=== PATIENT | female | born 1965 | race Caucasian/White ===

== ENCOUNTER 2021-10-09 08:32 | Emergency (ER) | payer BC ==
[2021-10-09] MEDS ORDERED: Sodium Chloride 0.9% 10 ML Syringe FLUSH PRN (08:33)
--- NOTE | 2021-10-09 08:34 | EDM.PDOC ---
ED HPI GENERAL MEDICAL PROBLEM - General Chief Complaint: Gastrointestinal Problem Stated Complaint: ABDOMINAL PAIN Time Seen by Provider: 10/09/21 08:34 Source of Information: Reports: Patient History Limitations: Reports: No Limitations - History of Present Illness INITIAL COMMENTS - FREE TEXT/NARRATIVE: 56 YO WF PRESENTS TO ER COMPLAINING OF ABDOMINAL PAIN WHICH BEGAN THIS AM AFTER BOWEL MOVEMENT. PT REPORTS SHE HAD JUST FINISHED MOVING HER BOWELS WHEN SHE DEVELOPED SUDDEN ONSET SEVERE LOWER ABDOMINAL PAIN RADIATING TO HER BACK. PT REPORTS PAIN WAXES/WANES AND IS MUCH IMPROVED UPON INITIAL EVALUATION. PT REPORTS BOWEL MOVEMENTS HAVE BEEN NORMAL WITHOUT ANY SIGNS OF RECTAL BLEEDING OR CHANGE IS CHARACTER OF STOOL. PT REPORTS ASSOCIATED NAUSEA WITHOUT VOMITING. PT WITH PMH OF PEUTZ-JEGHERS SYNDROME AND COLON CANCER HISTORY 6 YEARS AGO. PT HAD A COLONOSCOPY IN THE RECENT PAST WITH FEW POLYPS AT THAT TIME. PT DENIES FEVER/CHILLS OR RECENT ILLNESSES RECENTLY. Onset: Today, Sudden Duration: Improving, Waxing/Waning Location: Reports: Abdomen Quality: Reports: Ache Severity: Severe Improves with: Reports: Rest Worsens with: Reports: Movement Associated Symptoms: Reports: No Other Symptoms, Nausea/Vomiting Left Lower Abdominal Pain Score (Numeric/FACES): 4 - Related Data Allergies Allergy/AdvReac Type Severity Reaction Status Date / Time aspirin Allergy Hives Verified 10/09/21 08:58 ibuprofen Allergy Hives Verified 10/09/21 08:58 liraglutide [From Victoza] Allergy Cannot Verified 10/09/21 08:58 Remember ED ROS GENERAL - Review of Systems Review Of Systems: See Below Constitutional: Reports: No Symptoms HEENT: Reports: No Symptoms Respiratory: Reports: No Symptoms Cardiovascular: Reports: No Symptoms Endocrine: Reports: No Symptoms GI/Abdominal: Reports: Abdominal Pain, Nausea. Denies: Black Stool, Bloody Stool, Constipation, Diarrhea, Vomiting : Reports: No Symptoms Musculoskeletal: Reports: No Symptoms Skin: Reports: No Symptoms Neurological: Reports: No Symptoms Psychiatric: Reports: No Symptoms Hematologic/Lymphatic: Reports: No Symptoms Immunologic: Reports: No Symptoms ED EXAM, GI/ABD - Physical Exam Exam: See Below Exam Limited By: No Limitations General Appearance: Alert, WD/WN, No Apparent Distress Head: Atraumatic, Normocephalic Neck: Normal Inspection, Supple, Non-Tender, Full Range of Motion Respiratory/Chest: No Respiratory Distress, Lungs Clear, Normal Breath Sounds, No Accessory Muscle Use, Chest Non-Tender Cardiovascular: Normal Peripheral Pulses, Regular Rate, Rhythm, No Edema, No Gallop, No JVD, No Murmur, No Rub GI/Abdominal Exam: Normal Bowel Sounds, Soft, No Organomegaly, No Distention, No Abnormal Bruit, No Mass, Pelvis Stable, Tender (MILD GENERALIZED ABDOMINAL PAIN) Back Exam: Normal Inspection, Full Range of Motion, NT Extremities: Normal Inspection, Normal Range of Motion, Non-Tender, Normal Capillary Refill, No Pedal Edema Neurological: Alert, Oriented, CN II-XII Intact, Normal Cognition, Normal Gait, Normal Reflexes, No Motor/Sensory Deficits Psychiatric: Normal Affect, Normal Mood Skin Exam: Warm, Dry, Intact, Normal Color, No Rash Lymphatic: No Adenopathy Course - Vital Signs Last Recorded V/S: Last Vital Signs Temp 97.9 F 10/09/21 08:51 Pulse 100 10/09/21 08:51 Resp 18 10/09/21 08:51 BP 200/84 H 10/09/21 08:51 Pulse Ox 95 10/09/21 08:51 - Orders/Labs/Meds Orders: Active Orders 24 hr Category Date Time Status Peripheral IV Care [RC] . DIRECTED Care 10/09/21 08:34 Active UA W/MICROSCOPIC [URIN] Stat Lab 10/09/21 08:33 Ordered Sodium Chloride 0.9% [Normal Saline] 50 ml Med 10/09/21 09:00 Active IV ASDIRECTED Sodium Chloride 0.9% [Saline Flush] Med 10/09/21 08:33 Active 10 ml FLUSH Q8HR PRN Peripheral IV Insertion Adult [OM.PC] Routine Oth 10/09/21 08:33 Ordered Medication Orders Sodium Chloride (Normal Saline) 50 mls @ 200 mls/min IV ASDIRECTED DANIEL Sodium Chloride (Sodium Chloride 0.9% 10 Ml Syringe) 10 ml FLUSH Q8HR PRN PRN Reason: keep vein open Labs: Laboratory Tests 10/09/21 10/09/21 Range/Units 08:50 08:50 WBC 8.33 (5.00-10.00) 10^3/uL RBC 4.70 (3.80-5.50) 10^6/uL Hgb 11.9 L (12.0-16.0) g/dL Hct 38.4 (37.0-47.0) % MCV 81.7 L (82.0-92.0) fL MCH 25.3 L (27.0-31.0) pg MCHC 31.0 L (32.0-36.0) g/dL RDW 15.7 H (11.5-14.5) % Plt Count 234 (150-400) 10^3/uL MPV 9.8 (7.4-10.4) fL Immature Gran % (Auto) 0.2 (0.0-5.0) % Neut % (Auto) 79.0 H (50.0-70.0) % Lymph % (Auto) 14.8 L (20.0-40.0) % [place] % (Auto) 4.6 (2.0-8.0) % Eos % (Auto) 1.2 (1.0-3.0) % Baso % (Auto) 0.2 (0.0-1.0) % Neut # (Auto) 6.58 (2.50-7.00) 10^3/uL Lymph # (Auto) 1.23 (1.00-4.00) 10^3/uL [place] # (Auto) 0.38 (0.10-0.80) 10^3/uL Eos # (Auto) 0.10 (0.10-0.30) 10^3/uL Baso # (Auto) 0.02 (0.00-0.10) 10^3/uL Immature Gran # (Auto) 0.02 (0.00-0.50) 10^3/uL Sodium 143 (136-145) mmol/L Potassium 3.7 (3.5-5.1) mmol/L Chloride 103 (98-107) mmol/L Carbon Dioxide 27.5 (21.0-32.0) mmol/L Anion Gap 16.2 H (5-15) mmol/L BUN 17 (7-18) mg/dL Creatinine 0.51 (0.51-1.17) mg/dL Est Cr Clr Drug Dosing 106.36 mL/min Estimated GFR (MDRD) > 60 mL/min Glucose 216 H (70-140) mg/dL Calcium 8.1 L (8.7-10.3) mg/dL Total Bilirubin 0.3 (0.2-1.0) mg/dL AST 26 (15-37) U/L ALT 43 (14-63) U/L Alkaline Phosphatase 54 (46-116) U/L Total Protein 7.7 (6.4-8.2) g/dL Albumin 3.15 L (3.40-5.00) g/dL Lipase 149 (73-393) U/L Meds: Medications Generic Name Dose Route Start Last Admin Trade Name Freq PRN Reason Stop Dose Admin Sodium Chloride 50 mls @ 200 mls/min 10/09/21 09:00 Normal Saline IV ASDIRECTED DANIEL Sodium Chloride 10 ml 10/09/21 08:33 Sodium Chloride 0.9% 10 Ml Syringe FLUSH Q8HR PRN keep vein open Discontinued Medications Generic Name Dose Route Start Last Admin Trade Name Freq PRN Reason Stop Dose Admin Sodium Chloride 1,000 mls @ 999 mls/hr 10/09/21 08:33 10/09/21 09:29 Normal Saline IV 10/09/21 09:33 999 mls/hr .BOLUS ONE Administration Iopamidol 100 ml 10/09/21 08:57 Iopamidol 755 Mg/Ml 100 Ml Bottle IV 10/09/21 08:58 ONETIME ONE Iopamidol 75 ml 10/09/21 09:16 Iopamidol 755 Mg/Ml 75 Ml Bottle IVPUSH 10/09/21 09:17 ONETIME ONE - Radiology Interpretation Free Text/Narrative:: CT ABD/PELVIS- LOWER MIDLINE ABDOMINAL WALL HERNIA 12X7 CM CONTAINING FAT AND UNOBSTRUCTED SMALL BOWEL. - Re-Assessments/Exams Free Text/Narrative Re-Assessment/Exam: 10/09/21 09:53 PT REPORTS PAIN IS ALMOST RESOLVED (2/10). PT DENIES NAUSEA. PT REFUSED PAIN MEDICATION. PT WOULD LIKE TO BE DISCHARGED HOME AND WILL FOLLOW UP WITH PCP THIS WEEK FOR RECHECK Departure - Departure Time of Disposition: 10:04 Disposition: Home, Self-Care 01 Condition: Good Clinical Impression: Hernia of anterior abdominal wall - Discharge Information Instructions: Hernia, Adult Referrals: Ana Ferreira MD [Primary Care Provider] - Forms: ED Department Discharge Additional Instructions: 1. DISCHARGE HOME 2. FOLLOW UP WITH [facility] THIS WEEK FOR RECHECK AND SURGICAL REFERRAL FOR ABDOMINAL WALL HERNIA 3. RETURN TO ER FOR WORSENING SYMPTOMS 4. AVOID "BEARING DOWN" DURING BOWEL MOVEMENTS 5. CONSIDER STOOL SOFTENER/FIBER TO HELP WITH BOWEL MOVEMENTS Sepsis Event Note (ED) - Focused Exam Vital Signs: Vital Signs Temp Pulse Resp BP Pulse Ox 10/09/21 08:51 97.9 F 100 18 200/84 H 95 - My Orders Last 24 Hours: My Active Orders 10/09/21 08:33 UA W/MICROSCOPIC [URIN] Stat Sodium Chloride 0.9% [Saline Flush] 10 ml FLUSH Q8HR PRN Peripheral IV Insertion Adult [OM.PC] Routine 10/09/21 08:34 Peripheral IV Care [RC] . DIRECTED 10/09/21 09:00 Sodium Chloride 0.9% [Normal Saline] 50 ml IV ASDIRECTED - Assessment/Plan Last 24 Hours: My Active Orders 10/09/21 08:33 UA W/MICROSCOPIC [URIN] Stat Sodium Chloride 0.9% [Saline Flush] 10 ml FLUSH Q8HR PRN Peripheral IV Insertion Adult [OM.PC] Routine 10/09/21 08:34 Peripheral IV Care [RC] . DIRECTED 10/09/21 09:00 Sodium Chloride 0.9% [Normal Saline] 50 ml IV ASDIRECTED Assessment:: 1. ABDOMINAL WALL HERNIA WITHOUT INCARCERATION OR OBSTRUCTION 2. HYPERTENSION- TAKE HOME MEDICATIONS 3. HYPERGLYCEMIA- FOLLOW SLIDING SCALE Plan: 1. DISCHARGE HOME 2. FOLLOW UP WITH [facility] THIS WEEK FOR RECHECK AND SURGICAL REFERRAL FOR ABDOMINAL WALL HERNIA 3. RETURN TO ER FOR WORSENING SYMPTOMS 4. AVOID "BEARING DOWN" DURING BOWEL MOVEMENTS 5. CONSIDER STOOL SOFTENER/FIBER TO HELP WITH BOWEL MOVEMENTS
[2021-10-09 08:57] VITALS: BP 200/84; PULSE 100
[2021-10-09] MEDS: Iopamidol 755 Mg/ML 100 ML Bottle IV ONE (09:00)
[2021-10-09] MEDS: Sodium Chloride 0.9% 50 ML IV SCH (09:00)
[2021-10-09 09:15] LABS: ANION GAP 16.2 mmol/L (5-15); CHLORIDE,CL 103 mmol/L (98-107); SODIUM,NA 143 mmol/L (136-145)
[2021-10-09] MEDS: Sodium Chloride 0.9% 1,000 ML IV ONE (09:29)
--- NOTE | 2021-10-09 09:49 | CT ---
[id number] CT/CT Abdomen Pelvis W IV EXAM: CT Abdomen Pelvis W IV INDICATION: PAIN. COMPARISON: None. DISCUSSION: In the midline lower abdominal wall there is a complex multi lobe hernia with the orifice measuring about 12 x 7 cm. The hernia contains unobstructed small bowel and fat. Mild infiltration of the subcutaneous fat in the abdominal wall (image 106 series 2) may be from injection sites or cellulitis. The liver is enlarged and demonstrates diffuse steatosis and a nonspecific 20 x 16 x 16 mm enhancing focus in the superior right lobe. Liver MRI with and without the of this contrast could provide further evaluation. 50 mm simple appearing left renal cyst. Prior colonic resection at the junction of the descending and sigmoid segments. The gallbladder, pancreas, spleen, adrenal glands, right kidney, small bowel, and appendix are normal in appearance. No adenopathy, free air free fluid. Scattered degenerative changes in the spine. The osseous structures are otherwise unremarkable. IMPRESSION: 1. Complex lower midline abdominal wall hernia containing fat and unobstructed small bowel. 2. The liver is enlarged and demonstrates steatosis. There is a nonspecific enhancing area in the superior aspect of the right lobe of the liver. If the patient has history of liver disease or malignancy, consider liver MRI with and without contrast. James Alejo MD 10/09/21 [id number] Thank you for allowing us to participate in the care of your patient.
[2021-10-10] MEDS: Iopamidol 755 Mg/ML 75 ML Bottle IVPUSH ONE (07:43)
== END 2021-10-09 10:15 | disposition home or self-care (01) ==
LOC: KA.ED 08:32
DX: K43.9 Ventral hernia without obstruction or gangrene (principal); Z88.8 Allergy status to other drugs, medicaments and biological substances; Z88.6 Allergy status to analgesic agent
CPT/HCPCS: 36415; 74177; 80053; 83690; 85025; 99284-25; J7030; Q9967